=== PATIENT | female | born 1955 | race African-American/Black ===

== ENCOUNTER → 2020-05-06 | Outpatient (CLI) | payer MEDICARE ==
[2020-05-06 13:16] LABS: CALCIUM 9.2 mg/dL (8.5-10.1); CREATININE 0.9 mg/dL (0.6-1.0); GFR 75.8; POTASSIUM 3.5 mmol/L (3.5-5.1)
--- NOTE | 2020-05-06 13:16 | EKG ---
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
== END | disposition home or self-care (01) ==
LOC: LAB 12:14
PROVIDERS: ATTEND Family Medicine
DX: Z01.810 Encounter for preprocedural cardiovascular examination (principal); Z01.812 Encounter for preprocedural laboratory examination; I10 Essential (primary) hypertension; R22.32 Localized swelling, mass and lump, left upper limb
CPT/HCPCS: 36415; 80048; 93005